=== PATIENT | female | born 1950 | race Caucasian/White ===

== ENCOUNTER → 2019-09-02 | Outpatient (CLI) | payer MEDICARE ==
[~2019-09-02] MED LIST: AMOCLA875 PO; ATOR10; ATOR10 PO; CEPH500 PO; CHOL10002 PO; DICL.1SO OD; DICL25ER PO; DICL50ER; ESCI10; ESCI10 PO; HYDACE5325 PO; LOSARTAN POTAS100 MG PO; MULVIT PO; PANT20; PANT20 PO; RXCODACET PO; Ultram50 MG PO; VALS80; VALS80 PO
[2019-09-02 13:48] LABS: Stool Occult Bld Immuno 1 Negative (NEGATIVE)
== END | disposition home or self-care (01) ==
LOC: LAB SHORT 10:30 → OLS 10:30
PROVIDERS: Family Medicine
DX: Z12.11 Encounter for screening for malignant neoplasm of colon (principal)
CPT/HCPCS: G0328

== ENCOUNTER 2020-02-05 08:53 | Day surgery (SDC) | payer MEDICARE | END 2020-02-05 23:13 | disposition home or self-care (01) | LOC: MOI US 08:53 | DX: C50.911 Malignant neoplasm of unspecified site of right female breast (principal); Z17.0 Estrogen receptor positive status [ER+] | CPT/HCPCS: 19083; 77065; 88305; 88342; 88360; A4648 ==

== ENCOUNTER 2020-02-26 08:00 | Day surgery (SDC) | payer MEDICARE ==
[~2020-02-26] VITALS: Ht 162.6 cm; Wt 81.3 kg
[2020-02-26] MEDS ORDERED: SPIR25 PO (09:52)
== END 2020-02-26 12:59 | disposition home or self-care (01) ==
LOC: ORSCSDS 08:00 → RAD 08:30 → ORSCSDS 10:30
PROVIDERS: Surgery
PROC: 07B50ZX Excision of Right Axillary Lymphatic, Open Approach, Diagnostic (ICD-10-PCS; principal; 2020-02-26 11:00)
PROC: 0HBT0ZZ Excision of Right Breast, Open Approach (ICD-10-PCS; principal; 2020-02-26 11:00)
DX: C50.211 Malignant neoplasm of upper-inner quadrant of right female breast (principal); Z17.0 Estrogen receptor positive status [ER+]; D36.0 Benign neoplasm of lymph nodes; E78.5 Hyperlipidemia, unspecified; K21.9 Gastro-esophageal reflux disease without esophagitis; I10 Essential (primary) hypertension; Z79.899 Other long term (current) drug therapy; Z87.891 Personal history of nicotine dependence
CPT/HCPCS: 38792; 88307; 88342; A9270-GY; A9520; J0690; J2250; J2704; J3010; J7120; Q9968

== ENCOUNTER → 2020-12-09 | Outpatient (CLI) | payer MEDICARE ==
[~2020-12-09] MED LIST changes: +SPIR25 PO
[2020-12-10 12:30] LABS: Stool Occult Bld Immuno 1 Negative (NEGATIVE); Stool Occult Bld Immuno 2 Positive (NEGATIVE); Stool Occult Bld Immuno 3 Negative (NEGATIVE)
== END ==
LOC: LAB 11:00 → LAB SHORT 11:00
PROVIDERS: Internal Medicine Gastroenterology
DX: Z12.11 Encounter for screening for malignant neoplasm of colon (principal)
CPT/HCPCS: 82274

== ENCOUNTER 2021-03-03 10:04 | Day surgery (SDC) | payer MEDICARE ==
[~2021-03-03] VITALS: Ht 162.6 cm; Wt 81.9 kg
[2021-03-03] MEDS ORDERED: TOLT2ER (10:25)
== END 2021-03-03 12:44 | disposition home or self-care (01) ==
LOC: ORSCSDS 10:04
PROVIDERS: Internal Medicine Gastroenterology
PROC: 0DJD8ZZ Inspection of Lower Intestinal Tract, Via Natural or Artificial Opening Endoscopic (ICD-10-PCS; principal; 2021-03-03 11:15)
PROC: 0DB78ZX Excision of Stomach, Pylorus, Via Natural or Artificial Opening Endoscopic, Diagnostic (ICD-10-PCS; principal; 2021-03-03 11:15)
DX: K21.9 Gastro-esophageal reflux disease without esophagitis (principal); K92.1 Melena; K31.7 Polyp of stomach and duodenum; K29.70 Gastritis, unspecified, without bleeding; K57.30 Diverticulosis of large intestine without perforation or abscess without bleeding; Z87.891 Personal history of nicotine dependence; Z79.899 Other long term (current) drug therapy
CPT/HCPCS: 88305; 88342; J2704; J7120

== ENCOUNTER 2022-01-27 11:22 | Emergency (ER) | payer MEDICARE ==
[~2022-01-27] VITALS: Ht 162.6 cm; Wt 70.3 kg
[~2022-01-27 11:22] MED LIST changes: +TOLT2ER
[2022-01-27 12:20] LABS: Albumin/Globulin Ratio 0.8 (0.8-1.8); BASOPHILS ABSOLUTE AUTO 0.05 K/mm3 (0.00-0.23); BASOPHILS PERCENT AUTO 1 % (0-2); Bilirubin, Total 0.5 mg/dL (0.1-1.0); Bun/Creatinine Ratio 14.6 (12.0-20.0); Calcium, Blood 9.1 mg/dL (8.5-10.1); Creatinine, Blood 0.89 mg/dL (0.40-1.00); EOSINOPHILS ABSOLUTE AUTO 0.09 K/mm3 (0.00-0.68); EOSINOPHILS PERCENT AUTO 1 % (0-6); Globulin, Blood 3.9 g/dL (2.2-4.0); Hematocrit 40.9 % (33.0-51.0); Hemoglobin 13.8 g/dL (11.5-16.0); IMMATURE GRAN ABSOLUTE AUTO 0.04 K/mm3 (0.00-0.10); IMMATURE GRAN PERCENT AUTO 0 % (0-1); LYMPHOCYTES ABSOLUTE AUTO 1.47 K/mm3 (0.84-5.20); LYMPHOCYTES PERCENT AUTO 16 % (21-46); MONOCYTES ABSOLUTE AUTO 1.14 K/mm3 (0.16-1.47); MONOCYTES PERCENT AUTO 12 % (4-13); Mean Corpuscular HGB 30.3 pg (26.0-34.0); Mean Corpuscular HGB Conc 33.7 g/dL (31.5-36.5); Mean Corpuscular Volume 90 fL (80-100); NEUTROPHILS ABSOLUTE AUTO 6.67 K/mm3 (1.96-9.15); NEUTROPHILS PERCENT AUTO 71 % (41-73); Platelet Count 284 K/mm3 (150-400); Potassium, Blood 3.1 mmol/L (3.5-5.5); RDW Coefficient Variation 12.8 % (11.7-14.2); RDW Standard Deviation 42.1 fL (35.1-46.3); Red Blood Cell Count 4.56 M/mm3 (3.80-5.20); Total Protein, Blood 6.9 g/dL (6.4-8.2); White Blood Cell Count 9.46 K/mm3 (4.00-11.30)
[2022-01-27 13:33] LABS: Source, Urine Clean Catch
[2022-01-27 13:51] LABS: Appearance, Urine Hazy (Clear); Blood, Urine 1+ (Neg); Color, Urine Yellow (P-Yellow); Glucose Qualitative, Urine Neg (Neg); Ketones, Urine 3+ (Neg); Leukocyte Esterase, Urine 1+ (Neg); Nitrite, Urine Neg (Neg); Protein, Urine 3+ (Neg); Specific Gravity, Urine 1.025 (1.003-1.022); Urobilinogen, Urine 1+ (Normal)
[2022-01-27 14:05] LABS: Bilirubin, Urine 1+ (Neg)
[2022-01-27 14:06] LABS: Bacteria Mod /hpf; Mucus Heavy (0-Heavy); Squamous Epithelial Cells Few /hpf (Few)
[2022-01-27] MEDS ORDERED: ABILIFY MYCITE2 M2 PO (18:51)
== END 2022-01-27 21:25 | disposition short-term general hospital (02) ==
LOC: ER 11:22
PROVIDERS: Physician Assistant
DX: C16.9 Malignant neoplasm of stomach, unspecified (principal); E87.6 Hypokalemia; E86.0 Dehydration; Z88.3 Allergy status to other anti-infective agents
CPT/HCPCS: 36415; 74177; 80053; 81001; 83690; 83735; 85025; 87086; J0780; J2405; J2765; J3480; J7030; J7120; Q9967

== ENCOUNTER 2022-02-15 09:27 | Day surgery (SDC) | payer MEDICARE ==
[~2022-02-15] VITALS: Ht 162.6 cm; Wt 67.3 kg
[~2022-02-15 09:27] MED LIST changes: +ABILIFY MYCITE2 M2 PO
[2022-02-15] MEDS ORDERED: ONDA4ODT MM (10:11)
--- NOTE | 2022-02-15 10:46 | NUR ---
PT AXOX4, AMBULATED TO [facility] WITH STEADY GAIT, AT BEDSIDE. PT CARRYING A PLASTIC BAG AND ACTIVELY EXPERIENCING NAUSEA AND VOMITTING. PT REPORTS THIS IS HER "NORMAL" AND SHE VOMITS MULTIPLE TIMES/DAY SINCE SEPTEMBER 2021. PT HAS PEG TUBE IN STOMACH AND SUPPORTS HERSELF WHEN AMBULATING. PT HAS HAD URINALYSIS ON 01/27/22 THAT SHOWS POSITIVE FOR MIXED GRAM POSITIVE AND/OR GRAM NEGATIVE ROBERTO AND REPORTS NOT BEING PRESCRIBED ANTIBIOTICS. PT IS NOW REPORTING LOW URINE OUT THAT IS BRIGHT ORANGE AND HAS A FOUL ODOR. WILL NOTIFY .
--- NOTE | 2022-02-15 11:07 | NUR ---
TOOK OVER PATIENT CARE, AFTER REPORT WAS RECEIVED.
--- NOTE | 2022-02-15 13:41 | NUR ---
Dressing to procedure site clean, dry, intact with no visible drainage, swelling, erythema or bruising noted.
--- NOTE | 2022-02-15 14:09 | NUR ---
Discharge instructions reviewed with patient. Patient verbalizes understanding. Copy given to patient to take home. Discharged via wheelchair to private car for ride home.
== END 2022-02-15 14:10 | disposition home or self-care (01) ==
LOC: ORSCMMR 09:27 → ORD 09:27 → ORSCMMR 09:28 → ORD 10:45
PROVIDERS: Surgery
PROC: B543ZZA Ultrasonography of Right Jugular Veins, Guidance (ICD-10-PCS; principal; 2022-02-15 10:45)
PROC: 05HM33Z Insertion of Infusion Device into Right Internal Jugular Vein, Percutaneous Approach (ICD-10-PCS; principal; 2022-02-15 10:45)
DX: C16.2 Malignant neoplasm of body of stomach (principal); C77.8 Secondary and unspecified malignant neoplasm of lymph nodes of multiple regions; C79.51 Secondary malignant neoplasm of bone; K21.9 Gastro-esophageal reflux disease without esophagitis; I10 Essential (primary) hypertension; E78.5 Hyperlipidemia, unspecified; Z85.3 Personal history of malignant neoplasm of breast; Z79.899 Other long term (current) drug therapy; G47.33 Obstructive sleep apnea (adult) (pediatric)
CPT/HCPCS: 77001; C1788; J0690; J1100; J1642; J2001; J2405; J2704; J2795; J3010; J7120

== ENCOUNTER 2022-03-11 20:56 | Inpatient (IN) | payer MEDICARE ==
[~2022-03-11] VITALS: Ht 162.6 cm; Wt 79.4 kg
[~2022-03-11 20:56] MED LIST changes: +ONDA4ODT MM
[2022-03-11 21:36] LABS: BASOPHILS ABSOLUTE AUTO 0.04 K/mm3 (0.00-0.23); BASOPHILS PERCENT AUTO 1 % (0-2); EOSINOPHILS ABSOLUTE AUTO 0.01 K/mm3 (0.00-0.68); EOSINOPHILS PERCENT AUTO 0 % (0-6); Hematocrit 43.9 % (33.0-51.0); Hemoglobin 14.6 g/dL (11.5-16.0); IMMATURE GRAN ABSOLUTE AUTO 0.23 K/mm3 (0.00-0.10); IMMATURE GRAN PERCENT AUTO 4 % (0-1); LYMPHOCYTES ABSOLUTE AUTO 0.82 K/mm3 (0.84-5.20); LYMPHOCYTES PERCENT AUTO 14 % (21-46); MONOCYTES ABSOLUTE AUTO 0.03 K/mm3 (0.16-1.47); MONOCYTES PERCENT AUTO 1 % (4-13); Mean Corpuscular HGB 30.2 pg (26.0-34.0); Mean Corpuscular HGB Conc 33.3 g/dL (31.5-36.5); Mean Corpuscular Volume 91 fL (80-100); Mean Platelet Volume 11.5 fL (9.1-12.4); NEUTROPHILS ABSOLUTE AUTO 4.79 K/mm3 (1.96-9.15); NEUTROPHILS PERCENT AUTO 81 % (41-73); Platelet Count 199 K/mm3 (150-400); RDW Coefficient Variation 15.7 % (11.7-14.2); RDW Standard Deviation 50.5 fL (35.1-46.3); Red Blood Cell Count 4.84 M/mm3 (3.80-5.20); White Blood Cell Count 5.92 K/mm3 (4.00-11.30)
[2022-03-11 22:03] LABS: Albumin, Blood 2.9 g/dL (3.4-5.0); Albumin/Globulin Ratio 0.8 (0.8-1.8); Bilirubin, Total 0.7 mg/dL (0.1-1.0); Bun/Creatinine Ratio 47.3 (12.0-20.0); Calcium, Blood 6.9 mg/dL (8.5-10.1); Creatinine, Blood 1.48 mg/dL (0.40-1.00); Globulin, Blood 3.7 g/dL (2.2-4.0); Potassium, Blood 2.6 mmol/L (3.5-5.5); Total Protein, Blood 6.6 g/dL (6.4-8.2)
[2022-03-12] MEDS ORDERED: LORA.5 PO (01:56)
--- NOTE | 2022-03-12 03:35 | NUR ---
PT ARRIVED FROM ED AT 0130. SPOUSE AT BEDSIDE, AOX3 PT AND SPOUSE ABLE TO GIVE ADEQUATE HX. PT ADMITTED WITH J TUBE DISPLACEMENT, SURGICAL CONSULT CALLED. ORDERS REVIEWED. ORIENTED TO CALL LIGHT SYSTEM, PT IS VOMITTING AT THIS TIME, PT HYPOTENSIVE. NPO, FLUIDS INFUSING, KCL ADMINISTERED. IV BILATERAL HAND. BEDREST, UNABLE TO STAND DUE TO WEAKNESS AND FATIGUE. C/O MOUTH PAIN DUE TO RECENT CHEMO. GAUZE DRESSING TO DRAIN SITE, LLQ W/ PURULENT DRAINAGE. WILL CONTINUE MONITOR. SOFT CALL LIGHT IN REACH.
[2022-03-12 05:29] LABS: Hematocrit 42.3 % (33.0-51.0); Hemoglobin 13.6 g/dL (11.5-16.0); Mean Corpuscular HGB 29.9 pg (26.0-34.0); Mean Corpuscular HGB Conc 32.2 g/dL (31.5-36.5); Mean Corpuscular Volume 93 fL (80-100); Mean Platelet Volume 11.8 fL (9.1-12.4); Platelet Count 126 K/mm3 (150-400); RDW Coefficient Variation 15.9 % (11.7-14.2); RDW Standard Deviation 52.7 fL (35.1-46.3); Red Blood Cell Count 4.55 M/mm3 (3.80-5.20); White Blood Cell Count 7.28 K/mm3 (4.00-11.30)
[2022-03-12 05:46] LABS: Albumin, Blood 2.5 g/dL (3.4-5.0); Albumin/Globulin Ratio 0.8 (0.8-1.8); Bilirubin, Total 0.9 mg/dL (0.1-1.0); Bun/Creatinine Ratio 48.5 (12.0-20.0); Calcium, Blood 7.7 mg/dL (8.5-10.1); Creatinine, Blood 1.34 mg/dL (0.40-1.00); Globulin, Blood 3.2 g/dL (2.2-4.0); Potassium, Blood 3.1 mmol/L (3.5-5.5); Total Protein, Blood 5.7 g/dL (6.4-8.2)
--- NOTE | 2022-03-12 05:59 | NUR ---
UPDATE NO CHANGES SINCE LAST NOTED, PT RESTING COMFORTABLY AT THIS TIME. FLUIDS RUNNING, KCL INFUSED. ATIVAN GIVEN, WITH RELIEF. BEDREST, NPO. CALL LIGHT IN REACH, BED IN LOW POSITION. WILL REPORT TO DAY RN.
[2022-03-12 07:10] LABS: BAND PERCENT MAN 7 % (0-8); BASOPHILS PERCENT MAN 0 % (0-2); EOSINOPHILS PERCENT MAN 0 % (0-6); LYMPHOCYTES PERCENT MAN 11 % (21-46); MONOCYTES PERCENT MAN 0 % (4-13); NEUTROPHILS ABSOLUTE MAN 6.47 K/mm3 (1.96-9.15); SEG NEUTROPHILS PERCENT MAN 82 % (41-73); TOTAL CELLS COUNTED 100
--- NOTE | 2022-03-12 17:08 | NUR ---
Spoke to pt's Saleem this afternoon by phone. He is coming back to the hospital shortly. He reports the pt has been diagnosed with stage 4 stomach cancer, along with breast cancer. According to her , the pt had been dealing with n/v prior to being dianosed, and those symptoms were actually the reason she was even seen and diagnosed in the first place. Pt has had a jejunostomy that was dislodged when she lost her balance and fell at home. Prior to this past week, pt was able to ambulate unassisted, shower without assistance, and only required minimal assistance from her with tube feedings. However, she has almost stopped tube feedings altogether over the past week, and her states her n/v became much worse since she completed 2 sessions of chemotherapy. Pt made herself a DNR today, and has stated to her , "I can't keep on doing this, I'm miserable". Pt says he has been the driving force between her attempting to pursue treatment. Dr. Crawley is on vacation, so I placed a call to Areli Yanez, who states she will come in either today and tomorrow to assess pt and speak to both her and Fernando. Paramjit pt is confused, and speaking in word salad. Areli recommends pt be given the 8mg of zofran instead of 4mg.
--- NOTE | 2022-03-12 18:02 | NUR ---
SHIFT SUMMARY PT A&OX4/SLOW TO RESPOND, RA, TELE ST 123 BPM. FEEDING TUBE RE-PLACED AT BEDSIDE BY SURGEON, DRESSING CHANGED 1X, NOW WITH GAUZE & TEGADERM CDI. PT REMAINS NPO; N&V TREATED T/O SHIFT- ZOFRAN 8 MG Q4, AND PHENERGAN 12.5 MG Q6. ATIVAN PER EMAR FOR ANXIETY. IVF @ 75 MLS/HR, ABX Q6. SCOP PATCH LEFT EAR. ROBINS PLACED, YELLOW URINE OUT, STAT LOCK ON/OFF FLOOR. PILLOWS UNDERNEATH BOTTOM, MEPILEX ON. PT SITTING STRAIGHT UP IN BED, USING SUCTION TO REMOVE EMESIS. AT BEDSIDE. DR DURBIN OFFICE CONTACTED TODAY BY [facility], AND BY . WILL REPORT TO ONCROZINA TAI RN.
--- NOTE | 2022-03-12 19:05 | NUR ---
recvd report from previous rn radu. pt drowsy, waking, answers questions quietly. in room. Dr Karthik hernandez. Pt repositioned, removed pillows per her request, provided with anxiolytic per sep. bed in lowest position, bed rails up x 2, call light within reach
--- NOTE | 2022-03-13 01:53 | NUR ---
pt awakens disoriented, attempts to exit bed, bed alarm on. pt awakens approx q 15-30 min, anxious, nursing staff. reoriented and provided anxiolytics per sep. nausea continues, medicated per sep.
--- NOTE | 2022-03-13 04:56 | NUR ---
SHIFT SUMMARY: SINUS TACHYCARDIA PER TELEMETRY T/O SHIFT. PT APPEARS ANXIOUS, MEDICATED PER MAR, STILL AWAKENS APPROX 20-30 MIN. CHANGED FEEDING TUBE DRESSING X 1 THIS SHIFT, INTACT WITH SMALL AMOUNT GREEN BILE TO ONE CORNER. ROBINS CATHETER PATENT/DRAINING CLEAR YELLOW URINE. PT'S MOUTH DRY FROM OPEN MOUTH BREATHING, BLEEDING SORES, PT FLINCHES UPON SUCTIONING AND MOISTENED SPONGES. OBTAINED ORDERS FOR LYDOCAINE VISCIOUS MAGIC MOUTHWASH AND ROXANAL FOR PAIN/SORES, MEDICATED PER MAR. NURSING STAFF CHECKS ON PT OFTEN, APPROX Q20 MIN, SITS WITH PT, HOLDS PT'S HAND. THIS APPEARS TO SOMEWHAT RELIEVE ANXIETY TEMPORARILY.
--- NOTE | 2022-03-13 06:09 | NUR ---
ROBINS CATHETER OUTPUT SECOND HALF OF SHIFT <200 ML. 60 ML STERILE WATER FLUSH IN [place] PORT WITH HEMOSTAT CLAMP OF TUBE SHOWING URINE WITHDRAWAL AND SLOW FLOW IN UNCLAMPED TUBE CLEAR YELLOW URINE. SPOT CHECK BLADDER SCAN TO DETERMINE RESIDUAL TO BE COMPLETED
--- NOTE | 2022-03-13 13:32 | NUR ---
Spoke with MACHINE LEATHER TRIMMER Hermila from [facility] who is just finishing visiting with Pt. Pt and spouse are agreeable to pursue comfort care. Hermila recommends offering Ativan and Olanzapine to help with nausea as this has been beneficial in the past. Pt resting in bed with spouse Saleem assisting with keeping Pt upright. Pt does not engage in conversation as she is experiencing significant nausea. Pt appears significantly weak and frail. Engaged in therapeutic discussion with spouse Saleme regarding comfort care. Brief and gentle education on comfort care philosophy with V/U made by Saleem. Saleem attempts to hold back tears and emotional support offered. Spoke with Dr Vaz and discussed case. Placed order for comfort care, comfort care order set, Olanzapine 2.5-5mg PO at bedtime, and D/C maintenance medications per V/O from Dr Vaz. Spoke with Primary RN Chary and discussed case and reviewed comfort medications. Spoke with RN Chip Sexton and discussed case. Palliative Care will remain available.
--- NOTE | 2022-03-13 15:32 | NUR ---
SHIFT SUMMARY PT IS NOW COMFORT CARE. MEDICATED PER EMAR. AT BEDSIDE. PT FINALLY RESTING COMFORTABLY. FEEDING TUBE DRESSING CHANGED/NPO. ROBINS PATENT & DRAINING DK ORANGE URINE, 400 MLS. REPOSITIONED SEVERAL TIMES T/O SHIFT, FLOATING LEFT/RIGHT AND BOTH SIDES/BOTTOM ON PILLOWS. VOMITING FINALLY SLOWED THIS AFTERNOON, NOTHING REALLY SEEMS TO HELP; HALDOL HELPED PT SLEEP. SUCTION USED TO ASSIST PT WITH EMESIS. WILL REPORT TO ONCOMING NOC RN.
--- NOTE | 2022-03-14 05:21 | NUR ---
SHIFT SUMMARY COMFORT CARE CONTINUED. REPOSITIONED Q2H AND PRN. PT VOMITED THROUGHOUT SHIFT, IV ACCESS WAS LOST SO PHENERGEN SUPPOSITORY WAS GIVEN. PAIN MANAGED W/ ROXINOL. NPO THROUGHOUT SHIFT. WILL CONTINUE TO MONITOR AND REPORT TO ONCOMING RN.
--- NOTE | 2022-03-14 08:52 | NUR ---
REPOSITIONED PATIENT TO FLOATING WITH PILLOWS. SHE WAS ALSO GIVEN A BED BATH WELL ORAL CARE. COMBED OUT HER HAIR WELL. PATIENT OPENED HER EYES MORE WITH REPOSITIONING BUT WENT BACK TO SLEEP ONCE REPOSITIONED. PATIENT WAS GIVEN ROXANOL SINCE SHE SEEMED UNCOMFORTABLE WITH THE REPOSITIONING WELL ATROPINE DROPS. CALL LIGHT WITHIN REACH WITH MUSIC PLAYING.
--- NOTE | 2022-03-14 09:47 | NUR ---
Comfort Care Visit Pt resting in bed with her eyes closed. Pt appears comfortable with no S/S of distress. Pt non responsive at time of visit. Pt's spouse Saleem at bedside. Saleem is in agreement that Pt appears significantly more comfortable today. Offered active listening. Ended visit as Code Enforcement Supervisorjames Castillo at bedside. Pt appears to be transitioning and may be imminent. Spoke with Primary RN Radha and discussed case. Palliative Care will remain available.
--- NOTE | 2022-03-14 09:49 | NUR ---
Spiritual Care Visit. Pt. is resting and is not responsive. Spouse is present and welcomes my visit. Spouse displays appropriate evidence of grief in light of a recent comfort care decision. With a calming presence and theraputic listening, facilitated a short life review. Family has visited, and will continue to support Pt. and spouse. Spouse was mildly cathartic at times. Prayed for Spouse and Pt. Spouse verbalized gratitude for the spiritual care visit.
--- NOTE | 2022-03-14 11:06 | NUR ---
IS AT BEDSIDE. THIS NURSE OFFERED TO GIVE THE PATIENT ROXANOL FOR COMFORT. REFUSED. THEN OFFERED ATROPINE DROPS TO HELP CLEAR UP HER SECREATIONS A LITTLE BIT AND HE ACCEPTED THAT OFFER. THEN OFFERED TO REPOSITION THE PATIENT AND ALSO REFUSED STATING "SHE LOOKS PRETTY COMFORTABLE AND SHOULDN'T NEED TO BE REPOSITIONED OR GIVEN PAIN MEDS AT THIS TIME". CALL LIGHT IS WITHIN REACH FOR THE AND PATIENT.
--- NOTE | 2022-03-14 11:54 | NUR ---
IS STILL AT BEDSIDE. WHEN THIS NURSE OFFERED FOR THE PATIENT TO BE REPOSITIONED, GIVEN ROXANOL, OR THE ATROPINE DROPS THE REFUSED STATING "SHE SEEMS TO BE COMFORTABLE AND DOESN'T NEED ANY OF THAT AT THIS TIME...I KEEP RUBBING HER FOREHEAD AND TOUCHING HER HAND AND DOESN'T EVEN FLINCH NOW". CALL LIGHT IS IN REACH FOR BOTH THE PATIENT AND .
--- NOTE | 2022-03-14 12:57 | NUR ---
DAUGHTER JUST ARRIVED FROM [place] AND IS AT BEDSIDE WITH . THIS NURSE OFFERED TO GIVE ROXANOL AND REPOSITIONING. BOTH THE DAUGHTER AND REFUSED THOSE TO BE GIVEN TO THE PATIENT STATING "SHE HASN'T CHANGED EXPRESSION TO US THAT SHE IS UNCOMFORTABLE SO WE WILL KEEP HER THE WAY SHE IS AT THIS TIME". CALL LIGHT WITHIN REACH FOR BOTH FAMILY AND PATIENT. PATIENT IS NONVERBAL AND HASN'T OPENED HER EYES SINCE THE BEGINNING OF THIS SHIFT.
--- NOTE | 2022-03-14 13:58 | NUR ---
SHIFT SUMMARY: COMFORT CARE PATIENT IS SOMULENT AND NONVERBAL. AND DAUGHTER ARE AT BEDSIDE. AND DAUGHTER SO FAR HAVE REFUSED PAIN MEDICATIONS AND REPOSITIONING FOR THE PATIENT. HOWEVER, SHE HAS RECIEVED THE ATROPINE DROPS TO HELP WITH SECRETIONS. PATIENT WAS GIVEN A BED BATH THIS MORNING AND HAS BEEN GIVEN ORAL CARE BY THIS NURSE OR INTERMITTENTLY THROUGHOUT SHIFT. ROBINS IS DRAINING PER GRAVITY WITH DARK COLORED URINE. CATH CARE HAS BEEN PROVIDED.
--- NOTE | 2022-03-14 17:01 | NUR ---
FAMILY AGREED TO REPOSITIONING AND PRE-MEDICATING. PT MEDICATED WITH 5MG ROXANOL 15 MIN PRIOR TO CARE. BED BATH COMPLETED AND GOWN CHANGED. REPOSITIONED TO R SIDE, HEELS FLOATED. DRESSING TO LLQ COVERING FEEDING TUBE SATURATED SO CHANGED AT THIS TIME. MOUTH CARE USING WARM WATER, SPONGE AND MAGIC MOUTHWASH COMPLETE. ATROPINE GIVEN FOR RATTLES WELL SX. CATH CARE DONE. PT EXTREMITIES FLACID, NECK STIFF DURING CHANGE. FAMILY AT BEDSIDE. DENY ANY OTHER NEEDS AT THIS TIME.
--- NOTE | 2022-03-15 09:13 | NUR ---
Comfort Care Visit Pt resting in bed with her eyes closed. Primary RN Klaudia and family at bedside. Offered supportive visit and answered questions. Klaudia plans to offer comfort medication. Family expresses appreciation and reports no other concerns at this time. Palliative Care will remain available.
--- NOTE | 2022-03-15 10:41 | NUR ---
COMFORT CARE NOTE: IN TO SEE PT FOR ASSESMENT AT APROX 0800. PT APPPEARS TO BE RESTING COMFORTABLY AT THIS TIME. SX DONE FOR THICK SECRETIONS AND MEDICATED WITH ATROPINE. PT GIVEN BED BATH AND LINENS/GOWN CHANGED. PT WITH SMALL OPEN SORE ON INSIDE L BUTTOCKS, FAMILY REQUESTS NOT TO REPLACE MEPILEX DUE TO HOW WARM PT IS AND DRESSING WRINKLING/MOVING SO IT WAS NOT REPLACED. PILLOWS REMOVED AND PT RESPSITIONED ON BACK WITH HEELS FLOATED AND PILLOWS PLACED UNDER EACH ARM. PT MOANING/CRYING DURING REPOSITIONING/LINNEN CHANGE MEDICATED WITH 15MG ROXANOL. PT ALSO HAD WHAT APPEARED TO BE SOME NAUSEA/GAGING. ORDER FOR ACCESS MEDIPORT FROM [facility] ACCESED W/O DIFFICULTY AND GOOD BLOOD RETURN, FLUSHES EASILY. FAMILY AT BEDSIDE AND PASTORAL CARE IN THE ROOM.
--- NOTE | 2022-03-15 10:44 | NUR ---
Spiritual Care Visit Pt. was receiving medical care. This examination scorer met with the Pts. children ( a son and daughter) in the hallway. Family is resigned to the comfort care designation. Both display evidence of understanding and agreement. Both verbalized gratitude for the spiritual care visit. vernon examination scorer will monitor throughout the day.
--- NOTE | 2022-03-15 19:58 | NUR ---
SHIFT SUMMARY PT HAS CONTINUED TO HAVE 20-30 SEC PAUSES IN BREATHING. INCREASED ACCESORY MUSCLE USE. PAINFUL W/REPOSITIONING SO FAMILY HAS REFUSED TO SHIFT. PT DID OPEN HER EYES FOR APROX 10 MIN-NOT SPEAKING BUT TERFUL WHEN FAMILY SPOKE WITH HER. OFFERED FAMILY SPIRITUAL CARE-DECLINED THEY HAD ALREADY BEEIN IN WITH FAMILY. DISCUSSED WITH FAMILY WHICH MORTUARY THEY WOULD LIKE TO USE, REQUEST FOR T[employer]ORS. WISHES TO BE CALLED WHEN PT PASSES THEY WOULD LIKE TO HAVE THE OPTION TO SAY FINAL GOODBYES. NOC RN NOTIFIED.
--- NOTE | 2022-03-16 05:46 | NUR ---
PT PASSED PEACEFULLY AT APPROX 0215, FAMILY NOTIFIED. CAME IN TO SEE PATIENT. NOTIFIED DONOR LINE CALLED, DONOR LINE STATED THAT PT IS POSSIBLE EYE DONOR AND THAT THEY WOULD CONTACT THE FAMILY MEMBER. AWAITING CALL BACK. NOTIFIED AT APPROX 0245, CALLED BACK AT 0300. BATHED PT, SHIMON REMOVED, AND PORT DEACCESSED.
--- NOTE | 2022-03-16 06:10 | NUR ---
REACHED OUT TO DONOR REFERAL LINE FOR UPDATE ON PT DONOR STATUS. AT THIS TIME DONOR LINE REQUESTING THAT PT REMAIN ON THE UNIT AND TO HOLD OFF ON CALLING HOME THEY ARE STILL REACHING OUT TO NEXT OF KIN.
--- NOTE | 2022-03-16 10:03 | NUR ---
PT LEFT WITH [facility]. FAMILY DECLINED ORGAN DONATION.
== END 2022-03-16 10:02 | DRG 375 ==
LOC: ER 20:56 → SURS 23:27 → MEDS 23:27 → SURS 03-12 00:45
PROVIDERS: Student in an Organized Health Care Education/Training Program; ADMIT Internal Medicine
PROC: 0DHA3UZ Insertion of Feeding Device into Jejunum, Percutaneous Approach (ICD-10-PCS; principal; 2022-03-12)
DX: C16.6 Malignant neoplasm of greater curvature of stomach, unspecified (principal); E87.1 Hypo-osmolality and hyponatremia; K94.23 Gastrostomy malfunction; E87.6 Hypokalemia; E86.0 Dehydration; Z66 Do not resuscitate; K31.7 Polyp of stomach and duodenum; Z51.5 Encounter for palliative care; R62.7 Adult failure to thrive; E78.00 Pure hypercholesterolemia, unspecified; W18.30XA Fall on same level, unspecified, initial encounter; K21.9 Gastro-esophageal reflux disease without esophagitis; I10 Essential (primary) hypertension; K63.89 Other specified diseases of intestine; M85.80 Other specified disorders of bone density and structure, unspecified site; R74.01 Elevation of levels of liver transaminase levels; R94.31 Abnormal electrocardiogram [ECG] [EKG]; J30.9 Allergic rhinitis, unspecified; K22.70 Barrett's esophagus without dysplasia; Z90.11 Acquired absence of right breast and nipple; Z88.8 Allergy status to other drugs, medicaments and biological substances; Z68.30 Body mass index [BMI] 30.0-30.9, adult; Z79.899 Other long term (current) drug therapy; Z90.49 Acquired absence of other specified parts of digestive tract; Z98.890 Other specified postprocedural states; Z98.51 Tubal ligation status; Z95.828 Presence of other vascular implants and grafts; Z85.3 Personal history of malignant neoplasm of breast; Z87.19 Personal history of other diseases of the digestive system; Z87.891 Personal history of nicotine dependence
CPT/HCPCS: 36415; 74018; 74177; 80053; 82947; 83735; 85025; 93005; 93010; 96365; 96366; 96368; 96375; 99285-25; A9270; C9113; J0610; J1630; J2060; J2405; J2543; J2550; J3475; J3480; J7030; J7050; J7120; Q9967